=== PATIENT | female | born 1940 | race Caucasian/White ===

== ENCOUNTER 2021-06-26 17:30 | Emergency (ER) | payer MEDICARE ==
--- NOTE | 2021-06-26 17:32 | ERPHSYRPT ---
- History of Present Illness Time Seen by Provider: 06/26/21 17:31 Source: patient, family Exam Limitations: no limitations Physician History: This is an 81-year-old white female who has history of hypercholesterolemia, hypertension and presents emergency department after leaning over to move a rug and she fell forward hitting her head and face. She presents to the emergency department with abrasions of the left cheek and chin and complaints of a headache and neck pain. Patient does not recall all the events of the fall. She is not on any anticoagulation therapy. She denies shortness of breath. She denies chest pain. She is not dizzy. Occurred: just prior to arrival Reason for Fall: unknown Injuries/Pain Location: head, face, neck Loss of Consciousness: brief (seconds) Quality: burning Severity of Pain-Max: mild Severity of Pain-Current: mild Associated Symptoms (Fall): neck pain, No chest pain, No dizziness, No extremity injury, No shortness of breath Allergies/Adverse Reactions: No Known Drug Allergies Allergy (Verified 06/26/21 17:42) Home Medications: Allopurinol 100 mg [Zyloprim 100 mg] 100 mg PO DAILY 06/26/21 [History] Aspirin EC 81 mg [Ecotrin 81 mg] 81 mg PO DAILY 06/26/21 [History] Carvedilol 12.5 mg [Coreg 12.5 mg] 12.5 mg PO BID 06/26/21 [History] Lovastatin 40 mg PO 06/26/21 [History] Lutein 20 mg PO DAILY 06/26/21 [History] Republic-3S/Dha/Epa/Fish Oil [Fish Oil Republic-3 Softgel] 1 each PO DAILY 06/26/21 [History] Omeprazole 20 mg PO DAILY 06/26/21 [History] Sacubitril/Valsartan [Entresto 24 mg-26 mg Tablet] 1 each PO DAILY 06/26/21 [History] Tolterodine Tartrate [Tolterodine Tartrate ER] 4 mg PO DAILY 06/26/21 [History] Travel Risk - International Travel Have you traveled outside of the country in past 3 weeks: No - Coronavirus Screening Are you exhibiting any of the following symptoms?: No Close contact with a COVID-19 positive Pt in past 14-21 Days: No - Review of Systems Constitutional: No Symptoms Eyes: No Symptoms Ears, Nose, & Throat: No Symptoms Respiratory: No Symptoms Cardiac: No Symptoms Abdominal/Gastrointestinal: No Symptoms Genitourinary Symptoms: No Symptoms Musculoskeletal: Neck Pain, Fall, Injury Skin: Other (Abrasion to the skin of left cheek and chin) Neurological: No Symptoms Psychological: No Symptoms Endocrine: No Symptoms Hematologic/Lymphatic: No Symptoms Immunological/Allergic: No Symptoms All Other Systems: Reviewed and Negative - Past Medical History Pertinent Past Medical History: Yes Neurological History: No Pertinent History ENT History: No Pertinent History Cardiac History: Congestive Heart Failure, Hypertension Respiratory History: Asthma, Other Endocrine Medical History: No Pertinent History Musculoskeletal History: Osteoarthritis GI Medical History: GERD History: No Pertinent History Psycho-Social History: No Pertinent History Female Reproductive Disorders: No Pertinent History Other Medical History: Pulmonary HTN - Past Surgical History Past Surgical History: Yes Neuro Surgical History: No Pertinent History Cardiac: No Pertinent History Respiratory: No Pertinent History Gastrointestinal: No Pertinent History Genitourinary: No Pertinent History Musculoskeletal: Other Female Surgical History: Hysterectomy Other Surgical History: [place] repair to knee and carpal tunnel bilateral - Social History Smoking Status: Never smoker Exposure to second hand smoke: No Drug Use: none - Nursing Vital Signs Nursing Vital Signs: Initial Vital Signs Temperature 97.9 F 06/26/21 17:38 Pulse Rate 90 06/26/21 17:38 Respiratory Rate 20 06/26/21 17:38 Blood Pressure 171/103 06/26/21 17:38 O2 Sat by Pulse Oximetry 96 06/26/21 17:38 Pain Scale Pain Intensity 2 - Beatriz Coma Score Best Eye Response (Excelsior): (4) open spontaneously Best Verbal Response (Betariz): (5) oriented Best Motor Response (Excelsior): (6) obeys commands Excelsior Total: 15 - Physical Exam General Appearance: no apparent distress, alert, anxiety Head Injury: tenderness (And abrasion of left cheek and chin) Eye Exam: PERRL/EOMI, eyes nml inspection ENT Exam: airway nml, other, No evidence of ENT injury, No dental injury Neck Exam: trachea midline, normal inspection, paraspinous muscle tender, c- collar in place (C-collar was placed upon patient arrival to the emergency department) Respiratory/Chest Exam: normal breath sounds, No chest tenderness, No respiratory distress, No crepitus Gastrointestinal Exam: soft, normal bowel sounds, No tenderness Rectal Exam: not done Back Exam: normal inspection, normal range of motion, No CVA tenderness, No vertebral tenderness Extremity Exam: normal inspection, normal range of motion, capillary refill <3 sec, pelvis stable Neurologic Exam: alert, oriented x 3, cooperative, grocery shopper II-XII nml as tested, normal mood/affect, nml cerebellar function, nml station & gait, sensation nml Skin Exam: abrasion (Left cheek and chin) SpO2 Interpretation: normal O2 Delivery: Room Air - Course Nursing assessment & vital signs reviewed: Yes Ordered Tests: Active Orders 24 hr Category Date Time Status CERVICAL SPINE WO CONTRAST [CT] Stat Exams 06/26/21 17:48 Taken FACIAL BONES WO CONTRAST [CT] Stat Exams 06/26/21 17:48 Taken HEAD WITHOUT CONTRAST [CT] Stat Exams 06/26/21 17:48 Taken - Progress Progress: improved, pain not gone completely, re-examined Progress Note: 06/26/21 18:53 CAT scan of the head without contrast shows no acute intracranial pathology. There is no cranial fracture. CAT scan of the face without contrast shows no acute maxillofacial fracture CAT scan of cervical spine without contrast shows no acute cervical spine fracture or subluxation. Of note, there is a 1.6 cm low-density nodule in the posterior right lobe of the thyroid gland. Recommend further evaluation with nonemergent thyroid ultrasound. This was discussed in detail with the patient. Counseled pt/family regarding: diagnosis, need for follow-up, rad results - Departure Departure Disposition: Home Clinical Impression: Fall with no significant injury, Skin abrasion, Thyroid nodule greater than or equal to 1.5 cm in diameter incidentally noted on imaging study Condition: Stable Critical Care Time: No Referrals: LUCIO JO MD [Primary Care Provider] - Follow up/PCP as directed Additional Instructions: Use Tylenol and ibuprofen for pain control. Keep the abrasion sites clean with soap and water and apply antibiotic ointment to each abrasion site daily. Follow-up with your primary care physician for further evaluation of the thyroid nodule.
[2021-06-26 17:42] VITALS: O2SAT 96
[2021-06-26 19:37] VITALS: BP 141/84; PULSE 69
--- NOTE | 2021-06-27 07:01 | XRAY ---
Indication: Status post fall with head/facial injury. Syncope. Multiple contiguous ex images obtained through the head without contrast. Comparison: None Age-appropriate global atrophy and minimal periventricular degenerative micro-ischemia bilaterally. No acute intracranial hemorrhage, abnormal extra-axial fluid collection, or mass effect. Fourth ventricle is midline without hydrocephalus. Bony calvarium intact. Visualized paranasal sinuses and mastoid air cells are clear. Impression: Nonacute senile brain. Comment: Preliminary interpretation is made by [facility]. No critical discrepancy.
--- NOTE | 2021-06-27 07:05 | XRAY ---
Indication: Status post fall with head/facial injury. Syncope. Multiple contiguous ex images obtained through the cervical spine. Sagittal and coronal reformatted images obtained. Comparison: None Osseous structures demineralized consistent with patient's age. Axial images negative for acute fracture, suspicious spinal lesions, or spinal canal stenosis. There is mild C3-C7 degenerative endplate spurring and mild multilevel bilateral degenerative facet hypertrophy. Sagittal and coronal reformatted images demonstrates normal alignment with C3-C6 disc space narrowing. Minimal 1-2 mm anterolisthesis of C7 on T1. No acute compression fracture, subluxation, or jumped facet. Normal-appearing craniocervical junction. Visualized noncontrasted soft tissues demonstrates moderate scattered carotid calcifications bilaterally. Right thyroid demonstrates 1.5 cm hypodense nodule/cyst posteriorly. Lung apices are clear. Impression: 1. Negative acute fracture. 2. Osteopenia, multilevel degenerative spondylosis, and minimal grade 1 C7 spondylolisthesis. 3. Scattered arteriosclerotic disease and small right thyroid hypodense nodule/cyst. Comment: Preliminary interpretation is made by [facility]. No critical discrepancy.
--- NOTE | 2021-06-27 07:07 | XRAY ---
Indication: Status post fall with head/facial injury. Syncope. Multiple contiguous ex images obtained through the facial bones. Sagittal and coronal reformatted images obtained. Comparison: None Osseous structures demineralized consistent with patient's age. Multiple bilateral dental amalgams produces beam artifact. Visualized brain demonstrates 1.5 cm calcified meningioma floor left middle fossa. Small left supraorbital scalp hematoma. No acute fracture, suspicious bony lesions, or right hepatic foreign body. Orbits including roof, mendez, and floors are intact. Paranasal sinuses and nasal passages are clear. Mild nasoseptal deviation to the right. Visualized noncontrasted soft tissues unremarkable. Impression: 1. Left supraorbital scalp hematoma. No underlying fracture. 2. Incidental small calcified meningioma left middle fossa and nasoeptal deviation. Comment: Preliminary interpretation is made by [facility]. No critical discrepancy.
== END 2021-06-26 19:22 | disposition home or self-care (01) ==
LOC: ED 17:30
DX: S00.81XA Abrasion of other part of head, initial encounter (principal); W18.30XA Fall on same level, unspecified, initial encounter; R51.9 Headache, unspecified; M54.2 Cervicalgia; I11.0 Hypertensive heart disease with heart failure; I50.9 Heart failure, unspecified; E04.1 Nontoxic single thyroid nodule
CPT/HCPCS: 70450; 70486; 72125; 99283

== ENCOUNTER 2022-08-19 10:06 | Day surgery (SDC) | payer MEDICARE ==
--- NOTE | 2022-08-18 08:01 | HP ---
DATE OF SURGERY: 08/19/2022 HISTORY OF PRESENT ILLNESS: The patient is an 82-year-old female that presents with complaints of dysphagia a majority of the time. She does have a thyroid goiter. We will be addressing this at a later date. She is due for a colonoscopy. She did have colon polyps about three years ago. She was scoped by Dr. Pichardo. PAST MEDICAL HISTORY: Thyroid, gastroesophageal reflux disease, hypertension, gout. PAST SURGICAL HISTORY: Appendectomy. Hysterectomy. Carpal tunnel. Knee meniscus. ALLERGIES: NKDA. MEDICATIONS: Vitamin B12, albuterol, allopurinol, lutein, levothyroxine, carvedilol, omeprazole, Entresto, Tolterodine. FAMILY HISTORY: Heart disease. Stroke. Chronic obstructive pulmonary disease. SOCIAL HISTORY: Negative. REVIEW OF SYSTEMS: CONSTITUTIONAL: Denies fever or chills. CHEST: Denies shortness of breath. CVS: Denies chest pain. ABDOMEN: Denies abdominal pain. PHYSICAL EXAMINATION: GENERAL: No acute distress. CHEST: Nonlabored. No shortness of breath. CVS: Regular rate and rhythm. ABDOMEN: Soft. IMPRESSION: Dysphagia and history of colon polyps. PLAN: EGD with possible dilatation and colonoscopy with Dr. Maxwell Cook. As dictated by Monique De Leon NP.
[2022-08-19] MEDS ORDERED: Lactated Ringers 1,000 ML IV SCH (11:00)
[2022-08-19] MEDS ORDERED: Xylocaine-Mpf 2% 5 Ml Vial ONE (11:14)
[2022-08-19] MEDS ORDERED: Versed 2 MG/2 ML Injection ONE (11:14)
[2022-08-19] MEDS ORDERED: DIPRIVAN 200 MG/20 ML IV ONE ×2 (11:14→11:27)
[2022-08-19 12:34] VITALS: BP 147/92; PULSE 66; O2SAT 95
--- NOTE | 2022-08-19 13:48 | OP ---
SURGERY DATE/TIME: 08/19/2022 1117 PREOPERATIVE DIAGNOSES: 1) Dysphagia. 2) History of polyps. POSTOPERATIVE DIAGNOSES: 1) Two polyps, one cecal and one hepatic both 1 cm. 2) A 2 inch hiatal hernia. PROCEDURES: 1) Colonoscopy complete to cecum with hot polypectomy x2. 2) EGD. SURGEON: Maxwell Cook M.D. ANESTHESIA: MAC. COMPLICATIONS: None. CONDITION: Stable. DESCRIPTION OF PROCEDURE: A 2 inch hiatal hernia. 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 The patient also has just a little resistance at the gastroesophageal junction and possibly even some spasm at the cricopharyngeal junction possibly from spasm. Upper scope was slightly tedious and then it popped into place. The esophagus was about that size, about size 38 - [address] I am not sure whether there was additional spasm of cricopharyngeus. Gastroesophageal junction with grade 3 over 4 gastroesophageal reflux disease. She has been dilated a few times in the past and I do not think this would really help at this as almost entire esophagus and I think if we get this stirred up it will start actually getting smaller. Fundus, body, antrum satisfactory. Pylorus satisfactory. Duodenal bulb satisfactory. Duodenum second portion satisfactory. Scope withdrawn looped upon itself. A 2 inch hiatal hernia. Scope withdrawn. Above findings noted. I had discussion with the family. I think chewing very well, washing down with the food and sitting up. I think this is open to about size 40. She is 82. I do not think it is prudent to really stir this up or create any problems in this lady at this time. We will see her back in the office. Her medicines were adjusted.
== END 2022-08-19 12:48 | disposition home or self-care (01) ==
LOC: SDC 10:06
PROVIDERS: ATTEND Surgery
DX: Z09 Encounter for follow-up examination after completed treatment for conditions other than malignant neoplasm (principal); Z86.010 Personal history of colon polyps; R13.10 Dysphagia, unspecified; D12.3 Benign neoplasm of transverse colon; K44.9 Diaphragmatic hernia without obstruction or gangrene; K21.9 Gastro-esophageal reflux disease without esophagitis
CPT/HCPCS: 99100; J2250; J2704